=== PATIENT | male | born 1950 | race Caucasian/White ===

== ENCOUNTER 2016-11-26 10:09 | Emergency (ER) | payer MEDICARE, OTHER ==
[~2016-11-26] VITALS: Ht 180.3 cm; Wt 82.6 kg
--- NOTE | 2016-11-26 11:09 | NUR ---
Pt states he fell on right shoulder on Tuesday, unable to lift arm at shoulder, pain = 8/10, PMS intact. No other complaints, no distress noted.
[2016-11-26] MEDS: IBUPROFEN 800 MG TABLET PO ONE (12:39)
[2016-11-26] MEDS ORDERED: IBUPROFEN 800 MG TABLET ONE (12:41)
--- NOTE | 2016-11-26 12:44 | NUR ---
Placed right arm in shoulder sling and immobilizer. PMS intact. Pt given RX and d/c instructions, verbalized understanding.
== END 2016-11-26 12:47 | disposition home or self-care (01) ==
LOC: ER 10:09
DX: S46.911A Strain of unspecified muscle, fascia and tendon at shoulder and upper arm level, right arm, initial encounter (principal); E78.00 Pure hypercholesterolemia, unspecified; W01.0XXA Fall on same level from slipping, tripping and stumbling without subsequent striking against object, initial encounter; Y93.89 Activity, other specified; Y99.8 Other external cause status; Y92.89 Other specified places as the place of occurrence of the external cause
CPT/HCPCS: 73020; 73060; A4663